=== PATIENT | male | born 1970 | race Two or more races ===

== ENCOUNTER 2025-05-20 15:43 | Emergency (ER) | payer OTHER ==
[~2025-05-20] VITALS: Ht 167.6 cm; Wt 78.5 kg
[2025-05-20] MEDS ORDERED: REVLIMID10 MG (16:55)
[2025-05-20] MEDS ORDERED: LYRICA100 MG PO (16:55)
[2025-05-20] MEDS ORDERED: ZOLOFT100 MG PO (16:56)
[2025-05-20] MEDS ORDERED: BUSPIRONE HCL7.5 MG (16:56)
[2025-05-20] MEDS ORDERED: JANTOVEN2 MG PO (16:57)
[2025-05-20] MEDS ORDERED: UROXATRAL10 MG (16:57)
[2025-05-20] MEDS ORDERED: PEPCID AC10 MG PO (16:57)
[2025-05-20] MEDS ORDERED: REMERON15 MG PO (16:58)
[2025-05-20] MEDS ORDERED: TRAMADOL HCL E100 M1 PO (16:59)
[2025-05-20] MEDS ORDERED: TOLTERODINE TART2 MG PO (16:59)
[2025-05-20] MEDS ORDERED: 0.9 % SODIUM CHLORIDE 1,000 ML IV STA (17:56)
[2025-05-20] MEDS ORDERED: KETOROLAC TROMETHAMINE 15 MG VIAL IV STA (17:56)
[2025-05-20] MEDS ORDERED: KETOROLAC TROMETHAMINE 30 MG VIAL ONE (18:20)
[2025-05-20 18:30] LABS: BASO % 0.4 % (0.1-1.2); EOS # 0.08 (0.04-0.54); EOS % 1.8 % (0.7-7.0); LYMPH # 1.30 (1.18-3.74); LYMPH % 28.4 % (19.3-53.1); MEAN PLATELET VOLUME 9.60 fl (9.4-12.4); MONO # 0.59 (0.24-0.82); NEUT # 2.56 (1.56-6.13); NEUT % 56.1 % (34.0-71.1); RED CELL DISTRIBUTION WIDTH 12.6 % (11.6-14.4)
[2025-05-20 18:33] LABS: MONO % 12.9 % (4.7-12.5)
[2025-05-20 18:52] LABS: BUN CREA RATIO 23.0 (7.0-25.0); CREATININE SERUM 1.22 mg/dL (0.70-1.30); GFR 61.23; GLUCOSE FASTING 75.0 mg/dL (65-100); OSMOLALITY SERUM 280.0 MOSM/KG (275-295)
[2025-05-20 19:22] LABS: URINE APPEARANCE Clear; URINE BILIRRUBIN Negative (NEGATIVE); URINE BLOOD Negative; URINE COLOR Yellow; URINE GLUCOSE Negative (NEGATIVE); URINE KETONE Negative (NEGATIVE); URINE LEUKOCYTE Negative; URINE NITRATE Negative; URINE PROTEIN Negative (NEGATIVE); URINE UROBILINOGEN 0.2 E.U./dl
[2025-05-20 19:25] LABS: URINE BACTERIA 10.7 uL (0.0-1933); URINE WBC 3.6 uL (0.0-23.2)
[2025-05-20 19:38] LABS: URINE CAST 0.29 uL (0.0-1.40); URINE EPITHELIAL CELLS 1.2 uL (0.0-38.8); URINE RBC 0.2 uL (0.0-20.8)
== END 2025-05-20 21:36 | disposition home or self-care (01) ==
LOC: ER 15:43
PROVIDERS: Emergency Medicine
DX: R10.31 Right lower quadrant pain (principal)